=== PATIENT | female | born 1990 | race Caucasian/White ===

== ENCOUNTER 2023-07-04 13:22 | Outpatient (AMB) | payer OTHER, SELFPAY ==
--- NOTE | 2023-07-04 13:23 | A.OFFPC_ITS ---
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 Intake Note: Pt is here to est care pt needs a referral to [facility] Is last menstrual period known: Yes Last menstrual period: 06/14/23 Allergies No Known Allergies Allergy (Verified 07/04/23 13:40) Medication List - Last Reconciled 07/04/23 by MORRIS Kemp No Known Home Meds Tobacco use date assessed: 07/04/23 Dental Screening Dental Screen Date: 07/04/23 Did you have a dental visit in the last 12 months?: Yes Did you have a dental problem in the last 6 months where you did not have access to dental care?: No Was dental information given to patient?: Patient has dentist HPI HPI Comments History of Present Illness Details Patient is a 33-year-old female here to establish care. She has declined the influenza immunization today. She has declined this year's COVID booster. She has agreed to send his medical records from her previous provider. She is due for Pap smear, will refer. Patient is a cheese complain of psoriasis on her scalp, abdomen, and lower back. She states that she has use some [id number] hydrocortisone with little effect. She has tried using apple cider vinegar, and shampoo with no added ingredients, with little to no effect. The patient states she has a family history of psoriasis. The patient is interested in finding a therapist. Patient states she has anxiety and depression that is controlled, however she gets spikes of anxiety and depression during the winter months. Patient has no other complaints today [facility] Medical History Atopic eczema Family History Paternal Grandfather Substance use disorder Social History Housing: House Alcohol intake: current Comment: drinks 2 to 3 times per week. 1 drink per Patient Tobacco Use Status: Former Tobacco user Quit Date: quit 1 1/2 ago Cigarettes Per Day: 10 Years Smoked: 12 e-Cigarette/Vaping Use: Never Used Second Hand Smoke Exposure: No service: No Current occupational status: employed Current occupation: [employer] Current occupational exposures/hazards: No Cognitive needs: No Hearing needs: No Vision needs: No Female Reproductive History Menstrual Date of last menstrual period: 06/14/23 History of abnormal pap smear: No Questionnaire PHQ-9 Over the last 2 weeks, how often have you been bothered by any of the following problems? 1. Little interest or pleasure in doing things: not at all 2. Feeling down, depressed, or hopeless: several days 3. Trouble falling or staying asleep, or sleeping too much: not at all 4. Feeling tired or having little energy: not at all 5. Poor appetite or overeating: several days 6. Feeling bad about yourself - or that you are a failure or have let yourself or your family down: not at all 7. Trouble concentrating on things, such as reading the newspaper or watching television: not at all 8. Moving or speaking so slowly that other people could have noticed. Or the opposite - being so fidgety or restless that you have been moving around a lot more than usual: not at all 9. Thoughts that you would be better off or of hurting yourself in some way: not at all Total score: 2 Depression Screening Interpretation: Negative Depression Screening Done: Yes 44140 - PHQ-9 Billing: Yes Source: Developed by Drs. Tang Gutierrez, Olena Motley, Max Perdomo and colleagues, with an educational melissa from [employer]. Thrive Questionnaire Date Thrive assessed: 07/04/23 I am a: Patient What is your living situation today?: I have a steady place to live Within the past 12 months, did the food you bought not last and you didn't have the money to get more?: Never true Within the past 12 months, did you worry whether your food would run out before you got money to buy more?: Never true Do you have trouble paying for medicines?: No Do you have trouble getting transportation to medical appointments?: No Do you have trouble paying your heating and electricity bill?: No Do you have trouble taking care of your child, family member or friend?: No Do you have trouble with day-to-day activities such as bathing, preparing meals, shopping, managing finances, etc.?: No Are you currently unemployed and looking for a job?: No Are you interested in more education?: No THRIVE Score: 0 AUDIT C Alcohol Use Questionnaire (AUDIT-C) 1. How often do you have a drink containing alcohol?: 2-3 times a week 2. How many drinks containing alcohol do you have on a typical day when you are drinking?: 1 or 2 3. How often do you have six or more drinks on one occasion?: Never Total Score: 3 BARNEY-7 AMB Questionnaire BARNEY-7 Date BARNEY - 7 assessed: 07/04/23 Feeling nervous, anxious, or on edge: 0 = Not at all Not being able to stop or control worryin = Not at all Worrying too much about different things: 1 = Several days Trouble relaxin = Several days Being so restless that it is hard to sit still: 0 = Not at all Becoming easily annoyed or irritable: 1 = Several days Feeling afraid as if something awful might happen: 0 = Not at all Total BARNEY-7 score (0-4 normal; 5-9 mild; 10-14 moderate; 15-21 severe): 3 Source: Developed by Drs. Tang Gutierrez, Olena Motley, Max Pedromo and colleagues, with an educational melissa from [employer]. BARNEY-7 Assessment Billing BARNEY-7 Assessment Tool: BARNEY-7 Assessment 25511 Review of Systems Const Details: Constitutional : No Weight loss, No Fever, No Chills, No Fatigue, No Malaise Head: Admits itchiness and flaking of her scalp. Cardiovascular : No Chest Pain, No SOB, No Dyspnea on Exertion, No Orthopnea, No Edema, No Palpitations Respiratory : No Cough, No Sputum, No Wheezing Gastrointestinal : No Nausea, No Vomiting, No Diarrhea, No Constipation, No abdominal Pain, No Hematochezia, No Melena Genitourinary : No Dysuria, No Urinary Frequency, No Hematuria, Musculoskeletal : No joint pain, No Myalgias, No Joint Swelling Skin : Admits patches of dry flaking skin on abdomen and lower back. Neuro : No Weakness, No Numbness, No Dizziness, No Headache Psych : No Anxiety/Panic, No Depression Heme/Lymph: No Bruising, No Bleeding,No Lymphadenopathy Endocrine : No Polyuria, No Polydipsia All other systems reviewed and are negative Physical exam (Primary Care) Vital Signs: Last Vital Signs Pulse 81 07/04/23 13:25 BP 110/78 07/04/23 13:25 Pulse Ox 97 07/04/23 13:25 Oxygen Delivery Method Room Air 07/04/23 13:25 Care Plan Goal for BP management: Vital signs reviewed stable. BMI result Body Mass Index 31.7 Tobacco/Smoking Status: Tobacco use Status Tobacco use date assessed 07/04/23 07/04/23 13:37 Patient Tobacco Use Status Former Tobacco user 07/04/23 13:45 e-Cigarette/Vaping Use Never Used 07/04/23 13:45 PHQ-9: PHQ-9 Score PHQ-9: Total score 2 07/04/23 13:49 Depression Screening Interpretation: Negative Thrive Assessment: Date of Thrive Assessment Date Thrive assessed 07/04/23 07/04/23 13:46 Const Other: Appearance: Alert.? Oriented X3.? No acute distress.? Head: Normocephalic, atraumatic. Dry patches and scaling on hairline. Predominantly backside of head. Neck: Normal inspection.? Neck supple.? CVS: Normal heart rate and rhythm.? Pulses normal.? Respiratory: No respiratory distress.? Breath sounds normal.? Abdomen: Soft and nontender.? Skin: Small patches of dry flaking skin, pink. No discharge or signs of infection. Neuro: Oriented X 3.? No motor deficit.? No sensory deficit. CN 2-12 intact Results Reviewed Results Reviewed: Will call patient with lab results. Assessment and Plan Assessment & Plan (1) Psoriasis: Comment: Patient will be prescribed ketoconazole shampoo, triamcinolone. She will also be given referral to Dermatology. Patient has been educated on how to take the medication properly. Patient has been educated on signs of worsening symptoms. Code(s): L40.9 - Psoriasis, unspecified Plan: Take your medications as prescribed. If you were prescribed antibiotics today, it is important that you take your medication to their entirety, do not skip any doses, do not finish them early. Follow-up with your primary care provider this week. Return to the emergency department with new or worsening symptoms. Such as fevers, chills, chest pain, shortness of breath, nausea, vomiting, dizziness, headache, vision changes, lethargy In case of emergency call 911 (2) Seasonal affective disorder: Comment: Patient states that her depression anxiety tends to get worse during winter months. Patient is interested in speaking to a therapist. Will send in referral to community nurse navigation to assist with finding therapist for patient. Code(s): F33.8 - Other recurrent depressive disorders Plan Patient will follow-up in 5 months with physical exam. Orders: Orders UA CC w/rflx Micro + Cult Today E86.0 - Dehydration Vitamin B12 Today Z13.21 - Encounter for screening for nutritional disorder Comprehensive Met. Panel Today Z91.89 - Other specified personal risk factors, not elsewhere classified Complete Blood Count Auto Diff Today Z13.0 - Encounter for screening for diseases of the blood and blood-forming organs and certain disorders involving the immune mechanism Lipid Panel Today Z13.220 - Encounter for screening for lipoid disorders TSH reflex Free T4 Today Z13.29 - Encounter for screening for other suspected endocrine disorder Vitamin D 25-OH (D2 and D3) Today Z13.21 - Encounter for screening for nutritional disorder Vitamin B6 Today Z13.21 - Encounter for screening for nutritional disorder Referrals Dermatology Referral L40.9 - Psoriasis, unspecified Nurse Navigator Referral F41.9 - Anxiety disorder, unspecified [facility] Referral Z12.4 - Encounter for screening for malignant neoplasm of cervix Medications: New ketoconazole 2% 1 appl topical 2XW 120 mL 0RF triamcinolone acetonide 0.1% 1 appl topical DAILY 15 grams 0RF Review Flu Vaccine not done: patient reason Coding Level of Care Code New Pt Level 4 (86280) Diagnoses Psoriasis L40.9 Seasonal affective disorder F33.8 Additional Codes BARNEY-7 Assessment Billing - BARNEY-7 Assessment Tool: BARNEY-7 Assessment [id number] ([id number]) Time Spent (min) 45
[2023-07-04 13:25] VITALS: BP 110/78; PULSE 81; O2SAT 97; BMI 31.7
== END 2023-07-04 15:53 | disposition home or self-care (01) ==
PROVIDERS: PCP Nurse Practitioner Primary Care; Visit Provider Nurse Practitioner Primary Care
DX: F33.8 Other recurrent depressive disorders (principal); L40.9 Psoriasis, unspecified
CPT/HCPCS: 99204

== ENCOUNTER 2023-09-17 13:59 | Outpatient (REF) | payer OTHER, SELFPAY ==
[2023-09-18 06:42] LABS: CT PCR NOT DETECTED (Not Detect.); NG PCR NOT DETECTED (Not Detect.)
[2023-09-18 13:04] LABS: BV Int Neg Control Negative (Negative); BV Int Pos Control Positive (Positive)
[2023-09-25 23:29] LABS: HPV mRNA E6/E7 rflx Not Detected (Not Detected)
== END 2023-09-17 14:00 | disposition home or self-care (01) ==
LOC: HO.LAB 13:59
PROVIDERS: PCP Nurse Practitioner Primary Care; Visit Provider Advanced Practice Midwife
DX: Z01.419 Encounter for gynecological examination (general) (routine) without abnormal findings (principal); Z11.51 Encounter for screening for human papillomavirus (HPV); Z20.2 Contact with and (suspected) exposure to infections with a predominantly sexual mode of transmission
CPT/HCPCS: 0353U; 87480; 87510; 87624; 87660; 88142

== ENCOUNTER 2023-09-17 13:59 | Outpatient (AMB) | payer OTHER, SELFPAY ==
[2023-09-17 14:13] VITALS: BMI 32.0
--- NOTE | 2023-09-17 14:13 | MHC.OFFVIS ---
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 She used to have a primary care provider in [place] it did Pap smears. Her last 1 was about 6 years ago. She recently got she has no particular worries about infection or anything but is open to testing during the exam along with the Pap smear but declines blood work. She is open to but not especially trying they do take multivitamins every day. 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 She has no close family members with breast cancer and she does try to eat well. [facility] Medical History Atopic eczema Family History Paternal Grandfather Substance use disorder Social History Housing: House Alcohol intake: current Comment: drinks 2 to 3 times per week. 1 drink per Patient Tobacco Use Status: Former Tobacco user Quit Date: quit 1 1/2 ago Cigarettes Per Day: 10 Years Smoked: 12 e-Cigarette/Vaping Use: Never Used Second Hand Smoke Exposure: No service: No Current occupational status: employed Current occupation: [employer] Current occupational exposures/hazards: No Cognitive needs: No Hearing needs: No Vision needs: No Female Reproductive History Menstrual Age of Menarche: 14 Duration of menses: 3-5 days Date of last menstrual period: 09/11/23 control method: none Total pregnancies: 0 History of abnormal pap smear: No (previous pap 2018 neg,per pt.) Physical Exam Vital Signs: BMI result Body Mass Index 32.0 Const General: healthy appearing, comfortable, no acute distress, well developed and alert Nutritional Appearance: average body habitus Orientation/consciousness: patient oriented x3 Limitations: no limitations HEENT Head: Yes normocephalic Neck Neck: Yes normal visual inspection Chest Chest palpation & inspection: normal inspection of the chest Breast/axilla inspection: normal inspection of the breasts and normal inspection of the axillae Breast/axilla palpation: normal palpation of the breasts and normal palpation of the axillae Resp Effort & Inspection: normal respiratory effort GI Inspection: Yes normal to inspection, No Abdominal wall edema and No distended Palpation (GI): Soft to palpation and nontender Other: External exam within normal limits vagina pink and moist nulliparous cervix pink smooth friable with Pap normal appearing scant discharge. Healing folliculitis underneath left buttock ischial spine./along panty line. General: Yes bladder normal to palpation External Female Exam: normal external appearance and normal appearance of the urethra Speculum Exam - Vagina: normal appearance of the vagina, normal palpation and normal vaginal discharge Speculum Exam - Cervix: normal appearance of the cervix, normal palpation and nontender Bimanual exam- vagina & uterus: normal bimanual exam, normal palpation, uterine size normal, bladder normal to palpation, consistency normal, normal palpation, uterine mobility normal, uterine shape normal, No Cervical tenderness present, non-tender and no cervical motion tenderness Bimanual Exam- Adnexa, other: normal adnexae, no masses, normal and No adnexal tenderness Neuro General: patient oriented x3 Assessment & Plan Assessment & Plan (1) Well woman exam with routine gynecological exam: Code(s): Z01.419 - Encounter for gynecological examination (general) (routine) without abnormal findings (2) Cervical cancer screening: Code(s): Z12.4 - Encounter for screening for malignant neoplasm of cervix (3) Breast cancer screening: Code(s): Z12.39 - Encounter for other screening for malignant neoplasm of breast (4) Family planning education, guidance, and counseling: Code(s): Z30.09 - Encounter for other general counseling and advice on contraception Plan -----Discussed in this visit the following: healthy balanced diet, regular and consistent exercise, getting recommended health screens, doing the best she can for her particular health concerns, kegel exercises, pap smear screening and followup recommendations, mammography screening and SBE, normal changes in cycles in her life stage--- .---I discussed with pt some of the following including in case she does get and the optimal strategies for planning/ timing a , including achieving the best health she can before , including heathy balanced diet, exercise, wt loss to ideal BMI if appropriate, avoiding toxic substances and medications, not smoking, and taking a multivitamin w folic acid daily. Any specific health concerns should be managed before seeking/ putting oneself at risk of . In addition I reviewed normal cycles, fertility awareness and signs of ovulation, and timing to avoid, and achieve when she feel ready. I also discussed the fact that we do not have a full comprehensive obstetrical service currently in that women are sent to [facility] to deliver and if she wanted to have a full comprehensive OB care she would be berg to consider midwifery or obstetrical care with the practice that would deliver her from the start so she would no everyone on the team that would be involved in her care. RTC 1 year. Discussed that she will receive a letter with results of the Pap smear in 2-4 weeks or we would call for any problems. Coding Level of Care Code New Pt Prev Care 18-39yr([id number] Diagnoses Well woman exam with routine gynecological exam Z01.419 Cervical cancer screening Z12.4 Breast cancer screening Z12.39 Family planning education, guidance, and counseling Z30.09
== END 2023-09-17 15:21 | disposition home or self-care (01) ==
PROVIDERS: PCP Nurse Practitioner Primary Care; Visit Provider Advanced Practice Midwife
DX: Z01.419 Encounter for gynecological examination (general) (routine) without abnormal findings (principal); Z12.4 Encounter for screening for malignant neoplasm of cervix; Z12.39 Encounter for other screening for malignant neoplasm of breast; Z30.09 Encounter for other general counseling and advice on contraception
CPT/HCPCS: 99385

== ENCOUNTER 2025-04-27 11:07 | Outpatient (AMB) | payer OTHER, SELFPAY ==
[2025-04-27 11:14] VITALS: BP 114/74; PULSE 79; RESP 16; TEMP 36.7; O2SAT 100; BMI 32.9
--- NOTE | 2025-04-27 11:14 | A.OFFPC_ITS ---
Vital Signs 04/27/25 11:14 Height 5 ft 6 in Weight 204 lb BMI 32.9 BP 114/74 Blood Pressure Location Lt brachial Position Sitting Respiration 16 Pulse 79 Pulse Source Pulse Oximeter Temp 98.1 F Temp Source Oral Pulse Oximetry (%) 100 Oxygen Delivery Method Room Air Intake Visit Reasons: [facility] establish care-[facility] Intake Note: Pt is here today for transfer of care from [facility]. Allergies No Known Allergies Allergy (Verified 04/27/25 11:15) Medication List - Last Reconciled 04/27/25 by Sophie Torres MD No Known Home Meds Tobacco use date assessed: 04/27/25 Dental Screening Dental Screen Date: 04/27/25 Did you have a dental visit in the last 12 months?: Yes Did you have a dental problem in the last 6 months where you did not have access to dental care?: No Was dental information given to patient?: Patient has dentist HPI [facility] establish care-[facility]EVGENI[facility] HPI Details Pt presents for new patient . She complains of chronic episodes of dry cough when talking or swallowing fast on and off for 2 years. Patient denies sore throat odynophagia dysphagia GERD symptoms postnasal drip, seasonal allergy symptoms, wheezing sputum production pleurisy, PND or orthopnea. Patient reports having more loose bowel movements for the last year but denies watery diarrhea abdominal pain nausea vomiting fever chills hematochezia. Patient has not noticed any relation to food intake. Patient reports feeling more anxious for the last few months because of her father diagnosed with prostate cancer and sister diagnosed with colitis. Patient has a difficulty concentrating and would like to be tested for ADD. She has never taking medications for chronic anxiety or depression. Patient complains of witnessed sleep apnea noticed by her . Patient has been trying to conceive for the last few months. 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 REPLACED BY [facility] Medical History (Updated 04/27/25 @ 13:33 by Sophie Torres MD) Annual physical exam Cough Sleep apnea Cervical cancer screening Seasonal affective disorder Psoriasis Atopic eczema Surgical History (Updated 04/27/25 @ 11:21 by Symone Rico Avel) No pertinent past surgical history Family History (Updated 04/27/25 @ 12:27 by Sophie Torres MD) Paternal Grandfather Substance use disorder Father Prostate CA, Onset Age: 59 Social History Housing: House Alcohol intake: current Comment: drinks 2 to 3 times per week. 1 drink per Patient Tobacco Use Status: Former Tobacco user Cigarettes Per Day: 10 Years Smoked: 12 e-Cigarette/Vaping Use: Never Used Second Hand Smoke Exposure: No service: No Current occupational status: employed Current occupation: [employer] Current occupational exposures/hazards: No Cognitive needs: No Hearing needs: No Vision needs: No Female Reproductive History Menstrual Age of Menarche: 14 Questionnaire PHQ-9 Over the last 2 weeks, how often have you been bothered by any of the following problems? 1. Little interest or pleasure in doing things: not at all 2. Feeling down, depressed, or hopeless: not at all 3. Trouble falling or staying asleep, or sleeping too much: several days 4. Feeling tired or having little energy: several days 5. Poor appetite or overeating: several days 6. Feeling bad about yourself - or that you are a failure or have let yourself or your family down: not at all 7. Trouble concentrating on things, such as reading the newspaper or watching television: not at all 8. Moving or speaking so slowly that other people could have noticed. Or the opposite - being so fidgety or restless that you have been moving around a lot more than usual: not at all 9. Thoughts that you would be better off or of hurting yourself in some way: not at all Total score: 3 Depression Screening Interpretation: Negative Depression Screening Done: Yes 93228 - PHQ-9 Billing: Yes Source: Developed by Drs. Tang Gutierrez, Olena Motley, Max Perdomo and colleagues, with an educational melissa from [employer]. Thrive Questionnaire Date Thrive assessed: 04/27/25 I am a: Patient What is your living situation today?: I have a steady place to live Within the past 12 months, did the food you bought not last and you didn't have the money to get more?: Never true Within the past 12 months, did you worry whether your food would run out before you got money to buy more?: Never true Do you have trouble paying for medicines?: No Do you have trouble getting transportation to medical appointments?: No Do you have trouble paying your heating and electricity bill?: No Do you have trouble taking care of your child, family member or friend?: No Do you have trouble with day-to-day activities such as bathing, preparing meals, shopping, managing finances, etc.?: No Are you currently unemployed and looking for a job?: No Are you interested in more education?: No Please select the resources that you would like help with: None Currently or been in a relationship where the following occur: No concerns reported THRIVE Score: 0 AUDIT C Alcohol Use Questionnaire (AUDIT-C) 1. How often do you have a drink containing alcohol?: 2-3 times a week 2. How many drinks containing alcohol do you have on a typical day when you are drinking?: 3 or 4 3. How often do you have six or more drinks on one occasion?: Never Total Score: 4 BARNEY-7 AMB Questionnaire BARNEY-7 Date BARNEY - 7 assessed: 04/27/25 Feeling nervous, anxious, or on edge: 1 = Several days Not being able to stop or control worryin = Not at all Worrying too much about different things: 1 = Several days Trouble relaxin = Several days Being so restless that it is hard to sit still: 1 = Several days Becoming easily annoyed or irritable: 1 = Several days Feeling afraid as if something awful might happen: 0 = Not at all Total BARNEY-7 score (0-4 normal; 5-9 mild; 10-14 moderate; 15-21 severe): 5 Source: Developed by Drs. Tang Gutierrez, Olena Motley, Max Perdomo and colleagues, with an educational melissa from [employer]. BARNEY-7 Assessment Billing BARNEY-7 Assessment Tool: BARNEY-7 Assessment 71406 Review of Systems Const All systems reviewed & are unremarkable except as noted in HPI and below Eyes Reports no additional complaints ENT Reports no additional complaints Card Reports no additional complaints Resp Reports no additional complaints GI Reports no additional complaints Reports no additional complaints Physical exam (Primary Care) Vital Signs: Last Vital Signs Temp 98.1 F 04/27/25 11:14 Pulse 79 04/27/25 11:14 Resp 16 04/27/25 11:14 BP 114/74 04/27/25 11:14 Pulse Ox 100 04/27/25 11:14 Oxygen Delivery Method Room Air 04/27/25 11:14 BMI result Body Mass Index 32.9 Tobacco/Smoking Status: Tobacco use Status Tobacco use date assessed 04/27/25 04/27/25 11:17 Patient Tobacco Use Status Former Tobacco user 04/27/25 11:17 e-Cigarette/Vaping Use Never Used 04/27/25 11:17 PHQ-9: PHQ-9 Score PHQ-9: Total score 3 04/27/25 11:17 Depression Screening Interpretation: Negative Thrive Assessment: Date of Thrive Assessment Date Thrive assessed 04/27/25 04/27/25 11:17 Currently or been in a relationship where the following occur: No concerns reported Const General: no acute distress HENMT Head: Yes normal to inspection Ears: TM's normal bilaterally Face and sinus: Yes normal facial exam Mouth: Normal oral and palatal mucosa present Throat: Yes posterior oropharynx normal Eyes General: appearance normal, both eyes and all related structures Neck Neck: Yes no lymphadenopathy and Yes supple Resp Effort & Inspection: normal respiratory effort Auscultation: clear to auscultation bilaterally Cardio Rhythm: regular rhythm Heart sounds: S1 normal heart sound present and S2 normal heart sound present GI Inspection: Yes normal to inspection Palpation (GI): Soft to palpation Percussion: Yes normal to percussion Auscultation: normal bowel sounds Coding Level of Care Code New Pt Prev Care 18-39yr([id number] Diagnoses Sleep apnea G47.30 Cough R05.9 Psoriasis L40.9 Annual physical exam Z00.00 ADD (attention deficit disorder) F98.8 Seasonal affective disorder F33.8 Additional Codes BARNEY-7 Assessment Billing - BARNEY-7 Assessment Tool: BARNEY-7 Assessment [id number] ([id number]) PHQ-9 - 43935 - PHQ-9 Billing: Yes ([id number]) Assessment & Plan Assessment & Plan (1) Sleep apnea: Code(s): G47.30 - Sleep apnea, unspecified Category: Medical Plan: Obtain sleep study (2) Cough: Comment: chronic Code(s): R05.9 - Cough, unspecified Category: Medical Plan: Check chest x-ray and obtain pulmonary function tests to evaluate for asthma (3) Psoriasis: Code(s): L40.9 - Psoriasis, unspecified Category: Medical Plan: Referred to dermatology (4) Annual physical exam: Code(s): Z00.00 - Encounter for general adult medical examination without abnormal findings Category: Medical Plan: Well-balanced diet regular physical activity stress management discussed with the patient. She will try hydroxyzine as needed (5) ADD (attention deficit disorder): Code(s): F98.8 - Other specified behavioral and emotional disorders with onset usually occurring in childhood and adolescence Category: Medical Plan: Referred to [facility] for testing (6) Seasonal affective disorder: Code(s): F33.8 - Other recurrent depressive disorders Category: Medical Plan: Stress management mindfulness regular physical activity discussed with the patient. She will follow-up in 6 Orders: Orders PFT pulmonary function test Today R05.9 - Cough, unspecified Comprehensive [employer] Panel Fast Today Z00.00 - Encounter for general adult medical examination without abnormal findings Lipid Panel Today Z00.00 - Encounter for general adult medical examination without abnormal findings RT home sleep study Today G47.30 - Sleep apnea, unspecified XR chest 1V Today R05.9 - Cough, unspecified Complete Blood Count Auto Diff Today Z00.00 - Encounter for general adult medical examination without abnormal findings TSH reflex Free T4 Today Z00.00 - Encounter for general adult medical examination without abnormal findings UA w Microscopic Today Z00.00 - Encounter for general adult medical examination without abnormal findings Referrals Psychiatry Referral F98.8 - Other specified behavioral and emotional disorders with onset usually occurring in childhood and adolescence Dermatology Referral L40.9 - Psoriasis, unspecified Medications: New hydroxyzine HCl 10 mg PO BEDTIME PRN 30 tabs 0RF anxiety
== END 2025-04-27 13:33 | disposition home or self-care (01) ==
LOC: HO.HMCC 11:08
PROVIDERS: PCP Nurse Practitioner Primary Care; Visit Provider Internal Medicine
DX: G47.30 Sleep apnea, unspecified (principal); Z00.00 Encounter for general adult medical examination without abnormal findings; R05.9 Cough, unspecified; L40.9 Psoriasis, unspecified; F98.8 Other specified behavioral and emotional disorders with onset usually occurring in childhood and adolescence; F33.8 Other recurrent depressive disorders

== ENCOUNTER → 2025-04-27 11:07 | Outpatient (BNVA) | payer OTHER, SELFPAY | PROVIDERS: PCP Nurse Practitioner Primary Care; Visit Provider Internal Medicine | DX: Z13.31 Encounter for screening for depression (principal); Z13.39 Encounter for screening examination for other mental health and behavioral disorders | CPT/HCPCS: 96127 ==